=== PATIENT | male | born 1995 | race American Indian/Alaskan Native ===

== ENCOUNTER 2017-04-29 16:47 | Emergency (ER) | payer BC ==
[2017-04-29 17:09] VITALS: BMI 28.2
[2017-04-29 17:20] VITALS: BP 129/60; PULSE 74; RESP 18; TEMP 98.2; O2SAT 100
--- NOTE | 2017-04-29 18:50 | ED PDOC ---
Arrival/HPI - General Chief Complaint: Abnormal Skin Integrity Time Seen by Provider: 04/29/17 17:38 Historian: Patient - History of Present Illness Narrative History of Present Illness (Text): 04/29/17 21:11 21-year-old male presents today with left fifth finger laceration and injury. Patient states yesterday he slipped and fell and tried to brace his fall by grabbing onto the handrail. Patient states he sustained laceration to the left fifth finger around 2:00 in the afternoon yesterday. Patient states he continued to work today and had cleaned the wound and covered it with electrical tape. Patient presents today because his mother wanted the finger to be evaluated. Patient states his tetanus shot is up-to-date. He denies fevers or chills. He denies numbness weakness or tingling in the extremities. Denies wrist pain. Denies head injury. No chest pain or shortness of breath. No other complaints Past Medical History - Provider Review Nursing Documentation Reviewed: Yes - Travel History Have you recently traveled outside [place] w/in the past 3 mons?: No - Infectious Disease Hx of Infectious Diseases: None - Tetanus Immunization Tetanus Immunization: Unknown - Psychiatric Hx Depression: No Hx Emotional Abuse: No Hx Physical Abuse: No Hx Substance Use: No - Suicidal Assessment Feels Threatened In Home Enviroment: No Family/Social History - Physician Review Nursing Documentation Reviewed: Yes Family/Social History: Unknown Family HX Smoking Status: Never Smoked Hx Alcohol Use: No Hx Substance Use: No Hx Substance Use Treatment: No Allergies/Home Meds Allergies/Adverse Reactions: Allergies chlorpheniramine [From Cardec (phenylephrin-chlorphn)] Allergy (Verified 17:16) RASH phenylephrine [From Cardec (phenylephrin-chlorphn)] Allergy (Verified 04/29/17 17:16) RASH Review of Systems - Review of Systems Constitutional: absent: Fatigue, Fevers Respiratory: absent: SOB, Cough Cardiovascular: absent: Chest Pain, Palpitations Gastrointestinal: absent: Abdominal Pain, Nausea, Vomiting Musculoskeletal: Arthralgias Skin: Laceration Neurological: absent: Headache, Dizziness Psychiatric: absent: Anxiety, Depression Physical Exam Vital Signs Reviewed: Yes Vital Signs Temp Pulse Resp BP Pulse Ox 04/29/17 17:20 98.2 F 74 18 129/60 100 Temperature: Afebrile Blood Pressure: Normal Pulse: Regular Respiratory Rate: Normal Appearance: Positive for: Well-Appearing, Non-Toxic, Comfortable Pain Distress: None Mental Status: Positive for: Alert and Oriented X 3 - Systems Exam Head: Present: Atraumatic Neck: Present: Normal Range of Motion Respiratory/Chest: Present: Clear to Auscultation Cardiovascular: Present: Regular Rate and Rhythm Upper Extremity: Present: Normal ROM, NORMAL PULSES, Neurovascularly Intact, Capillary Refill < 2s, Other (left 5th finger; + 1.5cm laceration/partial skin avulsion noted to the middle phalanx; no active bleeding; full rom of finger; small abrasion noted to thePIP joints of the 3rd and 4th fingers. full rom of all fingers. ). No: Tenderness, Swelling, Erythema, Deformity Neurological: Present: GCS=15 Skin: Present: Warm, Dry Psychiatric: Present: Alert, Oriented x 3 Medical Decision Making ED Course and Treatment: 04/29/17 21:14 Patient is nontoxic well appearing in no distress. Vital signs are stable. Wound irrigated well with high pressure irrigation Tetanus up to date keflex po xray; no fracture, no fb. laceration is greater than 24 hours old. unable to repair with sutures, will allow to heal by secondary intention. steri strips applied; dressing applied. finger splint applied. Patient was advised to keep the wound clean and dry, apply bacitracin twice daily. Advised to return immediately if signs of infection develop or return if any other concerning symptoms develop Patient verbalizes understanding of discharge instructions and need for immediate followup. all aspects of this case were discussed the attending of record. Impression: Laceration, finger, hand injury Motrin every 6 hours as needed for pain Keflex; 1 capsule four times daily x 7 days Keep the wound clean and dry, apply bacitracin twice daily Use finger splint Return immediately if signs of infection develop: High fevers, increasing pain, redness, swelling, purulent discharge Follow up with the hand specialist/orthopedist within the next 2 days. Followup with primary care physician within the next 2 days Return if any other concerning symptoms develop - RAD Interpretation Radiology Orders: 04/29/17 18:22 HAND LEFT 5TH DIGIT (FINGER) [RAD] Stat Disposition/Present on Arrival - Present on Arrival Any Indicators Present on Arrival: No History of DVT/PE: No History of Uncontrolled Diabetes: No Urinary Catheter: No History of Decub. Ulcer: No History Surgical Site Infection Following: None - Disposition Have Diagnosis and Disposition been Completed?: Yes Diagnosis: Laceration of finger, Hand injury Disposition: HOME/ ROUTINE Disposition Time: 18:46 Patient Plan: Discharge Condition: GOOD Discharge Instructions (ExitCare): Finger Laceration (ED), Laceration Without Closure (ED) Additional Instructions: Motrin every 6 hours as needed for pain Keflex; 1 capsule four times daily x 7 days Keep the wound clean and dry, apply bacitracin twice daily Use finger splint Return immediately if signs of infection develop: High fevers, increasing pain, redness, swelling, purulent discharge Follow up with the hand specialist/orthopedist within the next 2 days. Followup with primary care physician within the next 2 days Return if any other concerning symptoms develop Prescriptions: Bacitracin OINT 1 applic TP BID #1 tube Cephalexin [Keflex] 500 mg PO QID #28 capsule Referrals: Baljeet Nava DO [Staff Provider] - Follow up with primary Elier Fontaine MD [Staff Provider] - Follow up with primary Forms: [facility] [employer] [facility] (Danish), WORK NOTE
--- NOTE | 2017-04-30 12:15 | RAD ---
PROCEDURE: Left small finger radiographs. HISTORY: injury/laceration COMPARISON: None. TECHNIQUE: AP radiograph of the left hand, as well as spot oblique and lateral images of left small finger were obtained. FINDINGS: LEFT SMALL FINGER: Left small finger normal, without fracture of focal lesion. Remainder of the left hand (as seen on the AP view) is grossly unremarkable. JOINTS: Normal. SOFT TISSUES: Soft tissue injury/ laceration at the level of the middle phalanx. No visulaized radiopaque/visualized foreign body. Last healed OTHER FINDINGS: None. IMPRESSION: No significant osseous abnormalities. Soft tissue injury 5th digit at the level of the middle phalanx without foreign body
== END 2017-04-29 19:11 | disposition home or self-care (01) ==
LOC: ED 16:47
DX: S61.217A Laceration without foreign body of left little finger without damage to nail, initial encounter (principal); W01.0XXA Fall on same level from slipping, tripping and stumbling without subsequent striking against object, initial encounter